=== PATIENT | female | born 2000 | race Caucasian/White ===

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

== ENCOUNTER 2022-05-27 07:12 | Emergency (ER) | payer SELFPAY ==
[2022-05-27 07:51] LABS: Hemoglobin 13.7 g/dL (12.0-16.0); Mean Corpuscular HGB CONC 32.3 g/dL (32.0-36.0); Mean Corpuscular Hemoglobin 28.2 pg (25.0-35.0); Mean Corpuscular Volume 87.4 fl (78.0-98.0); Platelet Count 406 10x3/uL (130-400); RBC Distribution Width 12.1 % (11.5-14.5); Red Blood Cell (RBC) Count 4.85 mill/uL (4.00-5.20); White Blood Cell (WBC) Count 22.6 10x3/uL (4.8-10.8)
[2022-05-27 07:53] LABS: Bilirubin Unable to Interpret (Negative); Blood, Urine Unable to Interpret (Negative); Clarity Hazy (Clear); Glucose, Urine (Dipstick) Unable to Interpret mg/dL (Negative); Ketone, Urine Unable to Interpret mg/dL (Negative); Leukocyte Unable to Interpret (Negative); Nitrite Unable to Interpret (Negative); Protein, Urine (Dipstick) Unable to Interpret mg/dL (Neg-Trace); Specific Gravity, Urine 1.015 (1.002-1.036); Urobilinogen UNABLE TO INTERPRET mg/dL (Less than 2)
[2022-05-27 07:54] LABS: RBC/HPF Greater than 50 HPF (0-3)
[2022-05-27 07:55] LABS: Bacteria/HPF 1+ HPF (None Seen); Pregnancy Test - Urine (BHCG) Negative (Negative); Pregu Control Background? CLEAR/WHITE (CLR/WHITE); Pregu Control Bar Appear? YES (CONTROL BAR); Specific Gravity 1.015 (1.002-1.036)
[2022-05-27 08:07] LABS: ALT (SGPT) 9 U/L (8-55); AST (SGOT) 12 U/L (5-30); Albumin 4.4 g/dL (3.5-5.0); Alkaline Phosphatase 60 U/L (40-100); Anion Gap 14 mmol/L (10-20); BUN (Urea Nitrogen) 6 mg/dL (8.4-21.0); Bilirubin, Total 0.7 mg/dL (0.2-1.2); Calc. Creatinine Clearance 0 mL/min (70-130); Calcium 9.3 mg/dL (7.8-10.44); Carbon Dioxide 22 mmol/L (22-29); Chloride 105 mmol/L (98-107); Estimated GFR 119; Globulin 2.5 g/dL (2.4-3.5); Glucose 88 mg/dL (70-105); Potassium 3.6 mmol/L (3.5-5.1); Protein, Total 6.9 g/dL (6.0-8.3); Sodium 137 mmol/L (136-145)
[2022-05-27 08:33] LABS: Eosinophils 1 % (0-10); Lymphocytes 10 % (28-48); MDiff Complete? YES; Monocytes 6 % (0-4); Neutrophil 83 % (31-61); Platelet Morphology Comment Appears Increased; RBC Morphology Normal
[2022-05-27] MEDS ORDERED: Ondansetron PF 4 MG/2 ML Vial ONE (08:43)
[2022-05-27] MEDS ORDERED: Morphine 4 MG/ML VIAL ONE (08:43)
[2022-05-27] MEDS ORDERED: cefTRIAXone\\ROCEPHIN 2 GM VIAL ONE (08:55)
[2022-05-27 08:59] LABS: PTT 26.5 sec (22.9-36.1); Prothrombin Time 13.6 sec (12.0-14.7)
[2022-05-27] MEDS ORDERED: Iopamidol-370 76% 500 ML 1 ML ONE (13:20)
== END 2022-05-27 10:59 | disposition home or self-care (01) ==
LOC: ERS 07:12
DX: N39.0 Urinary tract infection, site not specified (principal)
CPT/HCPCS: 36415; 74177; 80053; 81003; 81015; 81025; 83605; 85025; 85610; 85730; 87040; 87077; 87086; 87186; 96365; 96375; J0696; J2270; J2405; Q9967

== ENCOUNTER 2022-07-19 10:41 | Emergency (ER) | payer SELFPAY ==
[2022-07-19 11:35] LABS: Bilirubin Unable to Interpret (Negative); Blood, Urine Unable to Interpret (Negative); Clarity Turbid (Clear); Glucose, Urine (Dipstick) Unable to Interpret mg/dL (Negative); Ketone, Urine Unable to Interpret mg/dL (Negative); Leukocyte Unable to Interpret Leu/uL (Negative); Nitrite Unable to Interpret (Negative); Protein, Urine (Dipstick) Unable to Interpret mg/dL (Neg-Trace); RBC/HPF Greater than 50 HPF (0-3); Specific Gravity, Urine 1.026 (1.002-1.036); Urobilinogen UNABLE TO INTERPRET mg/dL (Less than 2); WBC/HPF 0-3 HPF (0-3); pH, Urine 6.4 (5.0-9.0)
[2022-07-19 11:36] LABS: Bacteria/HPF Rare-Few HPF (None Seen); Squamous Epithelial 0-3 HPF (0-3)
[2022-07-19 11:37] LABS: Transitional Epithelial 0-3 HPF (None Seen)
[2022-07-19 12:33] LABS: #Basophils 0.1 thou/uL (0.0-0.2); #Eosinphils 0.3 thou/uL (0.0-0.7); #Neutrophils 15.4 thou/uL (1.40-6.50); %Basophils 0.3 % (0.0-1.0); %Eosinophils 1.8 % (0.0-10.0); %Lymphocytes 10.8 % (28.0-48.0); %Monocytes 5.2 % (0.0-4.0); %Neutrophils 81.9 % (31.0-61.0); Hemoglobin 14.5 g/dL (12.0-16.0); Mean Corpuscular HGB CONC 33.5 g/dL (32.0-36.0); Mean Corpuscular Hemoglobin 29.1 pg (25.0-35.0); Mean Corpuscular Volume 86.9 fl (78.0-98.0); Mean Platelet Volume 7.9 fL (7.4-10.4); Platelet Count 362 10x3/uL (130-400); RBC Distribution Width 12.3 % (11.5-14.5); Red Blood Cell (RBC) Count 4.97 mill/uL (4.00-5.20); White Blood Cell (WBC) Count 18.9 10x3/uL (4.8-10.8)
[2022-07-19 12:55] LABS: ALT (SGPT) 10 U/L (8-55); AST (SGOT) 15 U/L (5-34); Albumin 4.4 g/dL (3.5-5.0); Alkaline Phosphatase 59 U/L (40-100); Anion Gap 14 mmol/L (10-20); BUN (Urea Nitrogen) 7 mg/dL (7.0-18.7); Bilirubin, Total 0.4 mg/dL (0.2-1.2); Calc. Creatinine Clearance 0 mL/min (70-130); Calcium 9.4 mg/dL (7.8-10.44); Carbon Dioxide 22 mmol/L (22-29); Chloride 107 mmol/L (98-107); Estimated GFR 127; Globulin 2.6 g/dL (2.4-3.5); Glucose 82 mg/dL (70-105); Potassium 3.7 mmol/L (3.5-5.1); Sodium 139 mmol/L (136-145)
== END 2022-07-19 12:17 | disposition home or self-care (01) ==
LOC: ERS 10:41
DX: R31.9 Hematuria, unspecified (principal); D72.829 Elevated white blood cell count, unspecified
CPT/HCPCS: 36415; 80053; 81003; 81015; 85025; 99283

== ENCOUNTER 2022-08-26 09:00 | Emergency (ER) | payer MEDICAID, SELFPAY ==
[2022-08-26] MEDS ORDERED: Ondansetron PF 4 MG/2 ML Vial ONE (09:35)
[2022-08-26] MEDS ORDERED: Acetaminophen 500 MG TAB ONE (09:35)
[2022-08-26] MEDS ORDERED: Morphine 4 MG/ML VIAL ONE (09:35)
[2022-08-26 09:58] LABS: #Lymphocytes 1.3 thou/uL (1.20-3.40); #Monocytes 1.4 thou/uL (0.11-0.59); #Neutrophils 10.4 thou/uL (1.40-6.50); %Basophils 0.2 % (0.0-1.0); %Eosinophils 0.4 % (0.0-10.0); %Monocytes 10.7 % (0.0-4.0); %Neutrophils 78.8 % (31.0-61.0); Mean Corpuscular HGB CONC 34.5 g/dL (32.0-36.0); Mean Corpuscular Hemoglobin 30.2 pg (25.0-35.0); Mean Corpuscular Volume 87.6 fl (78.0-98.0); Mean Platelet Volume 9.1 fL (7.4-10.4); Platelet Count 199 10x3/uL (130-400); RBC Distribution Width 12.5 % (11.5-14.5); White Blood Cell (WBC) Count 13.2 10x3/uL (4.8-10.8)
[2022-08-26 10:07] LABS: Bacteria/HPF Rare-Few HPF (None Seen); Bilirubin Negative (Negative); Blood, Urine Trace (Negative); Clarity Cloudy (Clear); Glucose, Urine (Dipstick) Normal (Negative); Ketone, Urine 80 mg/dL (Negative); Leukocyte 25 Leu/uL (Negative); Nitrite Negative (Negative); Protein, Urine (Dipstick) 30 mg/dL (Neg-Trace); Specific Gravity, Urine 1.026 (1.002-1.036); Urobilinogen Normal mg/dL (Less than 2); WBC/HPF 0-3 HPF (0-3); pH, Urine 5.5 (5.0-9.0)
[2022-08-26 10:07] LABS: BHCG - Serum Negative (NEGATIVE); Pregs Control Background? CLEAR/WHITE (CLR/WHITE); Pregs Control Bar Appear? YES (CONTROL BAR)
[2022-08-26 10:20] LABS: ALT (SGPT) 7 U/L (8-55); AST (SGOT) 12 U/L (5-34); Albumin 4.6 g/dL (3.5-5.0); Alkaline Phosphatase 59 U/L (40-100); Anion Gap 12 mmol/L (10-20); BUN (Urea Nitrogen) 6 mg/dL (7.0-18.7); Bilirubin, Total 0.4 mg/dL (0.2-1.2); Calc. Creatinine Clearance 0 mL/min (70-130); Calcium 9.2 mg/dL (7.8-10.44); Carbon Dioxide 21 mmol/L (22-29); Chloride 106 mmol/L (98-107); Estimated GFR 127; Globulin 2.6 g/dL (2.4-3.5); Glucose 91 mg/dL (70-105); Lipase 9 U/L (8-78); Potassium 3.4 mmol/L (3.5-5.1); Protein, Total 7.2 g/dL (6.0-8.3); Sodium 136 mmol/L (136-145)
[2022-08-26] MEDS ORDERED: Ketorolac Tromethamine 30 MG/ML VIAL ONE (11:35)
== END 2022-08-26 11:56 | disposition home or self-care (01) ==
LOC: ERS 09:00
DX: I88.0 Nonspecific mesenteric lymphadenitis (principal)
CPT/HCPCS: 74177; 80053; 81003; 81015; 83690; 84703; 85025; 96361; 96374; 96375; J1885; J2270; J2405

== ENCOUNTER 2022-10-06 09:16 | Emergency (ER) | payer SELFPAY ==
[2022-10-06 10:10] LABS: Pregnancy Test - Urine (BHCG) Negative (Negative); Pregu Control Background? CLEAR/WHITE (CLR/WHITE); Pregu Control Bar Appear? YES (CONTROL BAR); Specific Gravity 1.025 (1.002-1.036)
[2022-10-06] MEDS ORDERED: traMADol HCl 50 MG TAB ONE (13:03)
== END 2022-10-06 13:22 | disposition home or self-care (01) ==
LOC: ERS 09:16
DX: S93.412A Sprain of calcaneofibular ligament of left ankle, initial encounter (principal); S80.02XA Contusion of left knee, initial encounter; X50.1XXA Overexertion from prolonged static or awkward postures, initial encounter
CPT/HCPCS: 81025

== ENCOUNTER 2023-11-06 11:30 | Emergency (ER) | payer BC, SELFPAY ==
[2023-11-06] MEDS ORDERED: Ondansetron ODT 4 MG TAB ONE (16:11)
== END 2023-11-06 17:25 | disposition left against medical advice (07) ==
LOC: ERS 11:30
DX: Z53.21 Procedure and treatment not carried out due to patient leaving prior to being seen by health care provider (principal)
CPT/HCPCS: Q0162